=== PATIENT | female | born 1945 | race Caucasian/White ===

== ENCOUNTER 2021-07-21 18:42 | Observation (INO) | payer MEDICARE, OTHER ==
[2021-07-21 19:59] LABS: #Basophils 0.1 thou/uL (0.0-0.2); #Eosinphils 0.2 thou/uL (0.0-0.7); #Lymphocytes 1.6 thou/uL (1.20-3.40); #Monocytes 0.5 thou/uL (0.11-0.59); #Neutrophils 3.1 thou/uL (1.40-6.50); %Basophils 1.1 % (0.0-1.0); %Eosinophils 3.4 % (0.0-10.0); %Neutrophils 57.5 % (42.0-75.0); Hemoglobin 12.6 g/dL (12.0-16.0); Mean Corpuscular HGB CONC 32.5 g/dL (32.0-36.0); Mean Corpuscular Hemoglobin 30.8 pg (27.0-31.0); Mean Corpuscular Volume 94.8 fL (78.0-98.0); Mean Platelet Volume 7.1 fL (7.4-10.4); Platelet Count 187 thou/uL (130-400); RBC Distribution Width 12.9 % (11.5-14.5); White Blood Cell (WBC) Count 5.4 thou/uL (4.8-10.8)
[2021-07-21 20:21] LABS: ALT (SGPT) 27 U/L (8-55); AST (SGOT) 24 U/L (5-34); Alkaline Phosphatase 70 U/L (40-110); Anion Gap 12 mmol/L (10-20); BUN (Urea Nitrogen) 19 mg/dL (9.8-20.1); Bilirubin, Total 0.4 mg/dL (0.2-1.2); Calc. Creatinine Clearance 0 mL/min (70-130); Calcium 8.9 mg/dL (7.8-10.44); Carbon Dioxide 27 mmol/L (23-31); Chloride 108 mmol/L (98-107); Globulin 2.2 g/dL (2.4-3.5); Glucose 96 mg/dL (83-110); Protein, Total 6.2 g/dL (5.8-8.1); Sodium 143 mmol/L (136-145)
[2021-07-21] MEDS ORDERED: Aspirin Chewable 81 MG TAB ONE ×2 (21:14→21:15)
[2021-07-21 22:11] LABS: Bacteria/HPF None Seen HPF (None Seen); Bilirubin Negative (Negative); Blood, Urine Negative (Negative); Clarity Clear (Clear); Glucose, Urine (Dipstick) Normal (Negative); Ketone, Urine Negative (Negative); Leukocyte 75 Leu/uL (Negative); Nitrite Negative (Negative); Protein, Urine (Dipstick) Negative (Neg-Trace); RBC/HPF 0-3 HPF (0-3); Squamous Epithelial None Seen HPF (0-3); Urobilinogen Normal mg/dL (Less than 2); WBC/HPF 0-3 HPF (0-3); pH, Urine 6.5 (5.0-9.0)
[2021-07-22] MEDS ORDERED: Ondansetron PF 4 MG/2 ML Vial IVP PRN (00:30)
[2021-07-22] MEDS ORDERED: Acetaminophen 325 MG TAB PO PRN (00:30)
[2021-07-22] MEDS ORDERED: Ondansetron ODT 4 MG TAB SL PRN (00:30)
[2021-07-22 01:08] VITALS: BMI 23.2
[2021-07-22] MEDS ORDERED: hydrALAZINE 20 MG/ML VIAL SLOW IVP PRN (08:28)
[2021-07-22] MEDS: Enoxaparin Sodium 40 MG/0.4 ML SYRINGE SC SCH (10:45)
[2021-07-22] MEDS: Clopidogrel Bisulfate 75 MG TAB PO SCH (10:45)
[2021-07-22] MEDS: Aspirin 81 mg Enteric Coated Tablet PO SCH (10:46)
[2021-07-22 11:41] LABS: Prothrombin Time 13.4 sec (12.0-14.7)
[2021-07-22 13:58] LABS: Cardiac Risk 3.5 (Less than 4.5)
[2021-07-22] MEDS ORDERED: Atorvastatin Calcium 40 MG TAB PO SCH (21:00)
[2021-07-23] MEDS: Aspirin 81 mg Enteric Coated Tablet PO SCH (08:23)
[2021-07-23] MEDS: Clopidogrel Bisulfate 75 MG TAB PO SCH (08:23)
[2021-07-23] MEDS: Enoxaparin Sodium 40 MG/0.4 ML SYRINGE SC SCH (08:24)
[2021-07-23 15:54] VITALS: BP 116/62; TEMP 98.9
== END 2021-07-23 17:33 | disposition home or self-care (01) ==
LOC: ERS 18:42 → NEURO 21:39
PROVIDERS: ADMIT Internal Medicine; ATTEND Internal Medicine
DX: G45.9 Transient cerebral ischemic attack, unspecified (principal); I50.22 Chronic systolic (congestive) heart failure; J32.3 Chronic sphenoidal sinusitis; I08.3 Combined rheumatic disorders of mitral, aortic and tricuspid valves; Z79.899 Other long term (current) drug therapy; Z88.2 Allergy status to sulfonamides; Z91.040 Latex allergy status; Z95.0 Presence of cardiac pacemaker; Z20.822 Contact with and (suspected) exposure to COVID-19
CPT/HCPCS: 70450; 70551; 80053; 80061; 83090; 84484; 85025; 85610; 85652; 93005; 93306; 93880; 95712; 95819; 95957; 96372 ×2; 97139 ×3; 99285; G0378 ×3; U0003; U0005; 36415; 81003; 81015; J1650